=== PATIENT | male | born 1960 | race African-American/Black ===

== ENCOUNTER 2023-07-27 09:40 | Emergency (ER) | payer MEDICAID, OTHER ==
[~2023-07-27] VITALS: Ht 177.8 cm; Wt 86.0 kg
[2023-07-27 09:59] VITALS: O2SAT 100
[2023-07-27 12:12] LABS: ALANINE AMINOTRANSFERASE 47 IU/L (10-49); ALBUMIN 4.1 g/dL (3.2-4.8); ASPARTATE AMINOTRANSFERASE 57 IU/L (<34); BILIRUBIN TOTAL 1.4 mg/dL (0.1-1.0); CALCIUM 9.5 mg/dL (8.7-10.4); CARBON DIOXIDE 22 mEq/L (21-32); CHLORIDE 103 mEq/L (98-107); CREATININE 1.4 mg/dL (0.6-1.3); GLUCOSE 80 mg/dL (70-105); POTASSIUM 5.5 mEq/L (3.5-5.1); PROTEIN TOTAL 7.8 g/dL (6.0-8.3); SODIUM 135 mEq/L (136-145); TROPONIN I HIGH SENSITIVITY 7 ng/L (3.0-53); UREA NITROGEN BLOOD 8 mg/dL (9-23)
[2023-07-27 12:13] LABS: HEMATOCRIT. 45.4 % (42.0-52.0); HEMOGLOBIN. 14.7 g/dL (14.0-18.0); MEAN CORPUSCULAR HEMOGLOBIN 26.9 pg (28.0-32.0); MEAN CORPUSCULAR HGB CONC 32.3 g/dL (31.0-37.0); MEAN CORPUSCULAR VOLUME 83.2 fL (80.0-94.0); MEAN PLATELET VOLUME 9.4 fl (7.4-10.4); PLATELET 128 x1000/uL (130-400); RED BLOOD CELL COUNT 5.46 mill/uL (4.7-6.1); RED CELL DISTRIBUTION WIDTH 14.1 % (11.6-14.6); WHITE BLOOD COUNT 8.2 x1000/uL (4.5-11.0)
[2023-07-27 12:17] LABS: DIFFERENTIAL COMMENT 1
[2023-07-27 12:50] LABS: PLATELET ESTIMATE SLIGHTLY DECREASED
[2023-07-27] MEDS ORDERED: SODIUM CHLORIDE 0.9% 1,000 ML IV ONE (13:00)
[2023-07-27] MEDS ORDERED: SODIUM POLYSTYRENE SULFONATE 15 G/60 ML BOT PO ONE (13:15)
[2023-07-27 14:05] LABS: CLARITY URINE CLEAR (CLEAR); COLOR URINE YELLOW (YELLOW); GLUCOSE URINE NEGATIVE (NEGATIVE); KETONES URINE NEGATIVE (NEGATIVE); LEUKOCYTE ESTERASE URINE NEGATIVE (NEGATIVE); NITRITE URINE NEGATIVE (NEGATIVE); OCCULT BLOOD URINE TRACE (NEGATIVE); PH URINE 5.5 (4.5-8.0); PROTEIN URINE NEGATIVE (NEGATIVE); SPECIFIC GRAVITY URINE 1.017 (1.005-1.030); UROBILINOGEN URINE 0.2 E.U./dL (0.2-1.0)
[2023-07-27 14:22] LABS: MUCUS URINE TRACE /lpf (NONE/TRACE); SQUAMOUS EPITHELIAL CELL URINE RARE /lpf (RARE/1+)
[2023-07-27 14:24] LABS: RBC URINE 0-2 /hpf (0-2); WBC URINE 0-2 /hpf (0-2)
[2023-07-27 14:25] LABS: BACTERIA URINE TRACE
[2023-07-27 20:52] VITALS: BP 125/79; PULSE 85; RESP 20; TEMP 98.5
== END 2023-07-27 20:53 | disposition short-term general hospital (02) ==
LOC: ER 10:44 → CANBEDREQ 14:55 → ER 20:53
DX: N17.9 Acute kidney failure, unspecified (principal); E87.5 Hyperkalemia; G91.2 (Idiopathic) normal pressure hydrocephalus; Z98.890 Other specified postprocedural states
CPT/HCPCS: 99285; 96360; 70450; 71045; 96361; 80053; 81003; 85025; 84484; 36415; 93005; J7030